=== PATIENT | female | born 2005 | race African-American/Black ===

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

== ENCOUNTER 2024-04-03 10:37 | Emergency (ER) | payer OTHER ==
[~2024-04-03 10:37] MED LIST: Iopamidol 370 76% 100 ML VIAL ONE
[2024-04-03 11:14] LABS: #Basophils 0.03 10x3/uL (0.0-0.2); #Eosinphils 0.05 10x3/uL (0.0-0.5); #Monocytes 0.37 10x3/uL (0.0-1.1); #Neutrophils 2.34 10x3/uL (1.5-8.4); %Basophils 0.7 % (0.0-2.0); %Eosinophils 1.1 % (0.0-6.0); %Lymphocytes 36.9 % (18.0-47.0); %Monocytes 8.3 % (0.0-10.0); %Neutrophils 52.8 % (40.0-75.0); Hematocrit 41.8 % (34.9-44.5); Hemoglobin 12.8 g/dL (12.0-15.5); Mean Corpuscular HGB CONC 30.6 g/dL (32.0-36.0); Mean Corpuscular Hemoglobin 23.2 pg (27.0-33.0); Mean Corpuscular Volume 75.7 fL (81.6-98.3); Mean Platelet Volume 11.1 fL (7.4-10.4); Platelet Count 235 10x3/uL (150-450); RBC Distribution Width 23.1 % (11.5-14.5); Red Blood Cell (RBC) Count 5.52 10x6/uL (3.90-5.03); White Blood Cell (WBC) Count 4.4 10x3/uL (3.5-10.5)
[2024-04-03 11:21] LABS: Lactic Acid 0.9 mmol/L (0.5-2.2)
[2024-04-03 11:26] LABS: ALT (SGPT) 34 U/L (8-55); AST (SGOT) 29 U/L (5-34); Alkaline Phosphatase 72 U/L (40-100); Anion Gap 15 mmol/L (10-20); BUN (Urea Nitrogen) 6 mg/dL (7.0-18.7); Bilirubin, Total 0.5 mg/dL (0.2-1.2); Calc. Creatinine Clearance 0 mL/min (70-130); Calcium 9.1 mg/dL (7.8-10.44); Carbon Dioxide 27 mmol/L (22-29); Chloride 103 mmol/L (98-107); Estimated GFR 129; Globulin 3.7 g/dL (2.4-3.5); Glucose 88 mg/dL (70-105); Lipase 112 U/L (8-78); Protein, Total 6.7 g/dL (6.0-8.3); Sodium 142 mmol/L (136-145)
[2024-04-03] MEDS ORDERED: Thiamine HCl 200 MG/2 ML VIAL ONE (11:28)
[2024-04-03] MEDS ORDERED: Ondansetron PF 4 MG/2 ML Vial ONE (11:28)
[2024-04-03 12:44] LABS: BHCG - Serum Negative (NEGATIVE); Pregs Control Background? CLEAR/WHITE (CLR/WHITE); Pregs Control Bar Appear? YES (CONTROL BAR)
[2024-04-03] MEDS ORDERED: Potassium Chloride 20 MEQ TAB ONE (12:56)
[2024-04-03 13:23] LABS: Analyzer IN Cardio CS ER; Base Excess 2.5 mEq/L (-2 - +2); Calcium, Ionized (venous) 1.12 mmol/L (1.16-1.32); Chloride (VBG) 103 mmol/L (98-106); Hematocrit-VBG 40 % (36.0-47.0); Hemoglobin (Hb) 13.7 g/dL (11.7-15.5); Potassium (VBG) 3.33 mmol/L (3.70-5.30); Puncture Site Other Site; RapidComm Collect By cbn; Sodium 143 mmol/L (133-146); pH (venous) 7.362 (7.32-7.43)
== END 2024-04-03 14:40 | disposition home or self-care (01) ==
LOC: CSHERS 10:37
DX: E87.6 Hypokalemia (principal); E11.9 Type 2 diabetes mellitus without complications
CPT/HCPCS: 36415; 74177; 80053; 82805; 83605; 83690; 84703; 85025; 96361; 96374; 96375; J2405; J3411; Q9967

== ENCOUNTER 2024-09-24 09:31 | Emergency (ER) | payer OTHER ==
[2024-09-24] MEDS ORDERED: Acetaminophen 500 MG TAB ONE (10:43)
== END 2024-09-24 10:50 | disposition home or self-care (01) ==
LOC: CSHERS 09:31
DX: E11.40 Type 2 diabetes mellitus with diabetic neuropathy, unspecified (principal); Z79.899 Other long term (current) drug therapy
CPT/HCPCS: 99283

== ENCOUNTER 2025-05-28 17:37 | Emergency (ER) | payer OTHER ==
[2025-05-28] MEDS ORDERED: Tetracaine 0.5% PF 4 ML BOT ONE (19:20)
[2025-05-28] MEDS ORDERED: Fluorescein Opthalmic Strip ONE (19:20)
== END 2025-05-28 21:14 | disposition home or self-care (01) ==
LOC: CSHERS 17:37
DX: H57.12 Ocular pain, left eye (principal); E11.9 Type 2 diabetes mellitus without complications
CPT/HCPCS: 99283